=== PATIENT | male | born 1980 | race Caucasian/White ===

== ENCOUNTER 2016-11-27 20:39 | Emergency (ER) | payer MEDICARE, OTHER ==
[2016-11-27 22:00] LABS: HEMOGLOBIN 13.5 gm/dl (14.0-17.5); RED BLOOD COUNT 4.39 M/UL (4.20-5.50); WHITE BLOOD COUNT 7.5 K/UL (4.5-11.0)
[2016-11-27 22:18] LABS: BUN/CREATININE RATIO 12 (0-10)
== END 2016-11-28 00:50 | disposition home or self-care (01) ==
LOC: ER1 20:39
PROVIDERS: Family Medicine
DX: G40.909 Epilepsy, unspecified, not intractable, without status epilepticus (principal); E87.1 Hypo-osmolality and hyponatremia; F39 Unspecified mood [affective] disorder; Z79.899 Other long term (current) drug therapy
CPT/HCPCS: 36415; 70450; 80053; 80156; 80299; 81001; 82962; 85025; 93005; 96374; 99285; J2060

== ENCOUNTER 2021-08-24 12:52 | Emergency (ER) | payer OTHER, MEDICAID | END 2021-08-24 16:07 | disposition home or self-care (01) | LOC: ER1 12:52 | DX: S20.211A Contusion of right front wall of thorax, initial encounter (principal); S10.93XA Contusion of unspecified part of neck, initial encounter; S60.222A Contusion of left hand, initial encounter; V49.50XA Passenger injured in collision with unspecified motor vehicles in traffic accident, initial encounter; W22.12XA Striking against or struck by front passenger side automobile airbag, initial encounter; Y92.410 Unspecified street and highway as the place of occurrence of the external cause | CPT/HCPCS: 71045; 73130; 99283 ==

== ENCOUNTER 2021-12-14 19:19 | Emergency (ER) | payer MEDICARE, OTHER ==
[2021-12-14 20:25] LABS: HEMOGLOBIN 16.3 gm/dl (14.0-17.5); RED BLOOD COUNT 5.14 M/UL (4.20-5.50); WHITE BLOOD COUNT 12.7 K/UL (4.5-11.0)
[2021-12-14 20:48] LABS: BUN/CREATININE RATIO 12 (0-10)
== END 2021-12-14 22:15 | disposition admitted as inpatient to this hospital (09) ==
LOC: ER1 19:19
PROVIDERS: Student in an Organized Health Care Education/Training Program
DX: G40.901 Epilepsy, unspecified, not intractable, with status epilepticus (principal); Z20.822 Contact with and (suspected) exposure to COVID-19
CPT/HCPCS: 31500; 36600; 51702; 70450; 71045; 80053; 81001; 82803; 82962; 83605; 85025; 87040; 94002; 94760; 96374; 99285; J1953; J2060; J2250; J2560; J2704; Q2009; U0002